=== PATIENT | male | born 2000 | race African-American/Black ===

== ENCOUNTER 2021-05-19 15:56 | Emergency (ER) | payer OTHER, SELFPAY ==
--- NOTE | ~2021-05-19 | CT_ITS ---
EXAMINATION: CT brain wo con DATE: 05/19/2021 16:55 INDICATION: Head injury, loss of consciousness. Dizziness. TECHNIQUE: Computed tomography (CT) of the head was performed without intravenous contrast. The mA wa s adjusted according to patient size. Iterative reconstruction technique was employed. Exam dose: 60 5.33 mGy-cm total exam DLP. COMPARISON: 11/14/2018 CT brain FINDINGS: No intracranial mass lesion or hemorrhage or cerebrovascular accident. Normal garcia-white ma tter differentiation. Normal ventricular size. No midline shift or mass effect effect. No subdural or epidural hematoma is detected. No fracture or bone destruction of the cranial vault. Mastoid air cells and included paranasal sinuse s are normally developed and aerated. IMPRESSION: Negative examination Reviewed, dictated and finalized at [facility]. Reviewed, dictated and finalized at [facility]. IMPRESSION: Negative examination
[2021-05-19 16:22] VITALS: BP 161/81; PULSE 54; RESP 18; TEMP 37.2; O2SAT 98
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
[2021-05-19 17:57] VITALS: BP 146/84; PULSE 53; RESP 16; O2SAT 100
== END 2021-05-19 17:58 | disposition home or self-care (01) ==
PROVIDERS: Emergency Provider Emergency Medicine; PCP Pediatrics
DX: S09.90XA Unspecified injury of head, initial encounter (principal); Y04.2XXA Assault by strike against or bumped into by another person, initial encounter
CPT/HCPCS: 70450; 99284

== ENCOUNTER 2021-11-14 11:43 | Emergency (ER) | payer OTHER, SELFPAY ==
[2021-11-14 12:59] VITALS: BP 147/86; PULSE 67; RESP 18; TEMP 36.6; O2SAT 100
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
== END 2021-11-14 14:10 | disposition home or self-care (01) ==
PROVIDERS: Emergency Provider Registered Nurse; PCP Pediatrics
DX: H65.02 Acute serous otitis media, left ear (principal); J02.9 Acute pharyngitis, unspecified; F17.200 Nicotine dependence, unspecified, uncomplicated; J45.909 Unspecified asthma, uncomplicated
CPT/HCPCS: 87081; 87880; 99213; G0463